=== PATIENT | male | born 1990 | race Caucasian/White ===

== ENCOUNTER 2023-01-17 00:01 | Emergency (ER) | payer SELFPAY ==
[~2023-01-17] VITALS: Ht 175.3 cm; Wt 75.9 kg
[2023-01-17 00:12] VITALS: BP 114/80
[2023-01-17] MEDS ORDERED: acetaminophen 325mg tablet PO ONE (00:40)
== END 2023-01-17 01:01 ==
LOC: ER 00:02
DX: G44.209 Tension-type headache, unspecified, not intractable (principal)
CPT/HCPCS: 99283